=== PATIENT | male | born 2000 | race Caucasian/White ===

== ENCOUNTER 2021-09-28 22:44 | Emergency (ER) ==
[~2021-09-28] VITALS: Ht 172.7 cm; Wt 68.2 kg
[2021-09-29 01:18] VITALS: BP 127/58
[2021-09-30] MEDS ORDERED: AMOX875T2 PO (14:07)
[2021-09-30] MEDS ORDERED: BACITAB PO (14:07)
== END 2021-09-29 03:31 | disposition left against medical advice (07) ==
LOC: M ED 22:44
DX: Z53.21 Procedure and treatment not carried out due to patient leaving prior to being seen by health care provider (principal)

== ENCOUNTER 2021-09-29 18:26 | Inpatient (IN) | payer OTHER ==
[~2021-09-29] VITALS: Ht 172.7 cm; Wt 68.2 kg
[2021-09-29] MEDS ORDERED: NS 1,000 ML IV ONE ×2 (19:25→23:05)
[2021-09-29 20:30] LABS: BASO % 0.3 % (0.0-1.0); EOS # 0.1 10^3/uL (0.0-0.5); EOS % 0.7 % (0.0-3.0); HEMATOCRIT 45.7 % (42.0-52.0); HEMOGLOBIN 15.4 g/dl (13.5-17.5); LYMPH # 1.6 10^3/uL (1.5-5.0); LYMPH % 13.5 % (24.0-44.0); MEAN CORPUSCULAR HEMOGLOBIN 29.8 pg (27.0-33.0); MEAN CORPUSCULAR HGB CONC 33.7 g/dl (32.0-36.5); MEAN CORPUSCULAR VOLUME 88.4 fl (80.0-96.0); MONO # 0.7 10^3/uL (0.0-0.8); MONO % 6.1 % (2.0-8.0); NEUTROPHILS # 9.4 10^3/uL (1.5-8.5); NEUTROPHILS % 79.1 % (36.0-66.0); PLATELET COUNT, AUTOMATED 205 10^3/uL (150-450); RED BLOOD COUNT 5.17 10^6/uL (4.30-6.10); WHITE BLOOD COUNT 11.9 10^3/uL (4.0-10.0)
[2021-09-29] MEDS ORDERED: ISOVUE-370 76% 100ML VIAL As Ordered ONE (20:47)
[2021-09-29 21:05] LABS: ERYTHROCYTE SEDIMENTATION RATE 25 mm/hr (0-15)
[2021-09-29 21:15] LABS: ALBUMIN 3.9 GM/DL (3.2-5.2); ALT/SGPT 29 U/L (12-78); BILIRUBIN,DIRECT 0.3 MG/DL (0.0-0.2); BILIRUBIN,TOTAL 1.6 MG/DL (0.2-1.0); C REACTIVE PROTEIN QUANTITATIV 1.61 MG/DL (0.00-0.30); LIPASE 67 U/L (73-393); TOTAL PROTEIN 7.2 GM/DL (6.4-8.2)
[2021-09-29] MEDS ORDERED: AMPICILLIN SOD/SULBACTAM SOD 3 GM in D5W MINI-BAG PLUS 100 ML IV ONE (21:45)
[2021-09-29] MEDS ORDERED: dexameTHASONE 20MG/5ML VIAL (J1100 PER 1MG) IV ONE (22:10)
[2021-09-29] MEDS ORDERED: KETOROLAC 30 MG/ML 1ML VIAL IV ONE (22:10)
[2021-09-29] MEDS ORDERED: HOME MED LIST COMPLETE! XX SCH (22:20)
[2021-09-29 22:31] LABS: MONO SCRN NEGATIVE (NEGATIVE)
[2021-09-29] MEDS ORDERED: ONDANSETRON 4MG/2ML VIAL IV PRN (23:05)
[2021-09-29] MEDS ORDERED: KETOROLAC 30 MG/ML 1ML VIAL IV PRN ×2 (23:05)
[2021-09-29] MEDS ORDERED: ACETAMINOPHEN 325 MG/10.15 ML UDC PO PRN (23:05)
[2021-09-30 04:25] VITALS: BP 122/77
[2021-09-30] MEDS: AMPICILLIN SOD/SULBACTAM SOD 3 GM in D5W MINI-BAG PLUS 100 ML IV SCH ×4 (04:48→23:25)
[2021-09-30 08:00] VITALS: BP 97/52
[2021-09-30] MEDS ORDERED: NS 1,000 ML IV ONE (10:50)
[2021-09-30] MEDS: NS 1,000 ML IV SCH ×2 (12:27→23:24)
[2021-09-30] MEDS ORDERED: BACITAB PO (14:07)
[2021-09-30] MEDS ORDERED: AMOX875T2 PO (14:07)
[2021-09-30 15:04] LABS: BASO % 0.1 % (0.0-1.0); HEMATOCRIT 41.1 % (42.0-52.0); LYMPH # 1.3 10^3/uL (1.5-5.0); LYMPH % 12.9 % (24.0-44.0); MEAN CORPUSCULAR HGB CONC 34.1 g/dl (32.0-36.5); MEAN CORPUSCULAR VOLUME 88.2 fl (80.0-96.0); MONO # 0.5 10^3/uL (0.0-0.8); MONO % 5.4 % (2.0-8.0); NEUTROPHILS % 81.2 % (36.0-66.0); PLATELET COUNT, AUTOMATED 215 10^3/uL (150-450); RED BLOOD COUNT 4.66 10^6/uL (4.30-6.10); WHITE BLOOD COUNT 9.8 10^3/uL (4.0-10.0)
[2021-09-30 15:33] LABS: BLOOD UREA NITROGEN 10 MG/DL (7-18); C REACTIVE PROTEIN QUANTITATIV 3.06 MG/DL (0.00-0.30); CALCIUM LEVEL 8.6 MG/DL (8.5-10.1); CARBON DIOXIDE LEVEL 29 MEQ/L (21-32); CHLORIDE LEVEL 108 MEQ/L (98-107); CREATININE FOR GFR 0.84 MG/DL (0.70-1.30); GLUCOSE, FASTING 117 MG/DL (70-100); SODIUM LEVEL 142 MEQ/L (136-145)
[2021-09-30 15:37] LABS: ALBUMIN 3.2 GM/DL (3.2-5.2); ALT/SGPT 18 U/L (12-78); BILIRUBIN,DIRECT 0.3 MG/DL (0.0-0.2); BILIRUBIN,TOTAL 0.9 MG/DL (0.2-1.0); TOTAL PROTEIN 6.3 GM/DL (6.4-8.2)
[2021-09-30 15:49] LABS: ERYTHROCYTE SEDIMENTATION RATE 40 mm/hr (0-15)
[2021-09-30 16:26] VITALS: BP 121/61
[2021-09-30 16:30] LABS: HEPATITIS B CORE ANTIBODY IGM NEGATIVE (NEGATIVE); HEPATITIS C VIRUS ABY INDEX 0.2 INDEX (<0.8)
[2021-09-30 16:37] LABS: HEPATITIS B SURFACE ANTIGEN NEGATIVE (NEGATIVE)
[2021-09-30 20:00] VITALS: BP 120/58
[2021-10-01 04:00] VITALS: BP 118/57
[2021-10-01] MEDS: AMPICILLIN SOD/SULBACTAM SOD 3 GM in D5W MINI-BAG PLUS 100 ML IV SCH ×3 (05:23→16:05)
[2021-10-01 05:56] LABS: BASO % 0.3 % (0.0-1.0); EOS # 0.1 10^3/uL (0.0-0.5); EOS % 0.7 % (0.0-3.0); HEMATOCRIT 39.4 % (42.0-52.0); HEMOGLOBIN 13.5 g/dl (13.5-17.5); LYMPH # 2.5 10^3/uL (1.5-5.0); LYMPH % 25.1 % (24.0-44.0); MEAN CORPUSCULAR HEMOGLOBIN 30.4 pg (27.0-33.0); MEAN CORPUSCULAR HGB CONC 34.3 g/dl (32.0-36.5); MEAN CORPUSCULAR VOLUME 88.7 fl (80.0-96.0); MONO # 0.9 10^3/uL (0.0-0.8); MONO % 8.4 % (2.0-8.0); NEUTROPHILS # 6.6 10^3/uL (1.5-8.5); NEUTROPHILS % 65.1 % (36.0-66.0); PLATELET COUNT, AUTOMATED 193 10^3/uL (150-450); RED BLOOD COUNT 4.44 10^6/uL (4.30-6.10); WHITE BLOOD COUNT 10.1 10^3/uL (4.0-10.0)
[2021-10-01 06:24] LABS: BLOOD UREA NITROGEN 10 MG/DL (7-18); CALCIUM LEVEL 8.5 MG/DL (8.5-10.1); CARBON DIOXIDE LEVEL 30 MEQ/L (21-32); CHLORIDE LEVEL 109 MEQ/L (98-107); CREATININE FOR GFR 0.84 MG/DL (0.70-1.30); GLUCOSE, FASTING 92 MG/DL (70-100); POTASSIUM SERUM 4.3 MEQ/L (3.5-5.1); SODIUM LEVEL 143 MEQ/L (136-145)
[2021-10-01 08:00] VITALS: BP 108/57
[2021-10-01] MEDS ORDERED: IBUP-1022 PO (08:22)
[2021-10-02 13:06] LABS: ANTINUCLEAR ANTIBODIES DIRECT Negative (Negative)
== END 2021-10-01 17:08 | disposition home or self-care (01) | DRG 153 ==
LOC: M ED 18:26 → M ED INP 18:27 → M PCU 09-30 04:21 → OBSVTOIN 09-30 14:03
PROVIDERS: ADMIT Internal Medicine; ATTEND General Practice
DX: J36 Peritonsillar abscess (principal)

== ENCOUNTER 2021-12-01 10:22 | Emergency (ER) | payer OTHER ==
[~2021-12-01] VITALS: Ht 175.3 cm; Wt 71.1 kg
[~2021-12-01 10:22] MED LIST: AMOX875T2 PO; BACITAB PO; IBUP-1022 PO
[2021-12-01] MEDS ORDERED: IBUP-1022 PO (13:20)
[2021-12-01] MEDS ORDERED: LIDO2SOL17 PO (13:20)
[2021-12-01 13:32] VITALS: BP 119/58
== END 2021-12-01 13:34 | disposition home or self-care (01) ==
LOC: M ED 10:22
DX: J02.9 Acute pharyngitis, unspecified (principal)